=== PATIENT | male | born 1995 | race Caucasian/White ===

== ENCOUNTER 2022-07-25 23:10 | Emergency (ER) | payer OTHER ==
[~2022-07-25] VITALS: Ht 170.2 cm; Wt 77.1 kg
[2022-07-25 23:29] VITALS: BP 183/114
--- NOTE | 2022-07-26 01:30 | NUR ---
ER physician speaking with patient.
--- NOTE | 2022-07-26 01:39 | NUR ---
Patient resting in bed, A/Ox4, chest rise and fall symmetrical, no s/s of distress, on monitor.
[2022-07-26] MEDS ORDERED: SULF-59 PO (02:48)
--- NOTE | 2022-07-26 03:00 | NUR ---
Wound dressing changed per ER physician's verbal orders. Patient tolerated procedure well. Addendum: 07/26/22 at 0301 by [id number] Wound dressing changed per ER physician's verbal orders. Patient tolerated procedure well, no c/o pain or s/s of distress.
[2022-07-26 03:01] VITALS: BP 128/75
== END 2022-07-26 03:02 | disposition home or self-care (01) ==
LOC: MED 23:10
DX: L97.129 Non-pressure chronic ulcer of left thigh with unspecified severity (principal); L03.116 Cellulitis of left lower limb; Z79.899 Other long term (current) drug therapy
CPT/HCPCS: 99283

== ENCOUNTER 2023-01-11 03:10 | Emergency (ER) | payer OTHER ==
[~2023-01-11] VITALS: Ht 162.6 cm; Wt 77.1 kg
[~2023-01-11 03:10] MED LIST: SULF-59 PO
[2023-01-11 03:18] VITALS: BP 170/130; PULSE 129; RESP 16; TEMP 97.4; O2SAT 100
[2023-01-11] MEDS ORDERED: ACETAMINOPHEN EXTRA STRENGTH 500 MG TAB PO ONE (03:50)
[2023-01-11] MEDS ORDERED: IBUPROFEN 600 MG TAB PO ONE (03:50)
[2023-01-11 04:57] LABS: APPEARANCE,URINE CLEAR (CLEAR); BILIRUBIN,URINE NEGATIVE (NEGATIVE); BLOOD, URINE 1+ (NEGATIVE); COLOR,URINE YELLOW (YELLOW); LEUKOCYTE ESTERASE ,URINE NEGATIVE (NEGATIVE); NITRITE, URINE NEGATIVE (NEGATIVE); PROTEIN,URINE TRACE (NEGATIVE); UGLUCOSE NEGATIVE (NEGATIVE); UROBILINOGEN,URINE 0.2 EU/dL (0.2 - 1)
[2023-01-11 05:02] LABS: BACTERIA,URINE >30 (MANY) /HPF (None Seen); MUCUS,URINE 1+ /LPF (None Seen); RBC,URINE 11-20 (MOD) /HPF (0-5); SQUAMOUS EPITHELIAL CELL,UR 0-3 (FEW) /LPF (0-3 (FEW)); WBC,URINE 0-5 /HPF (0-5)
[2023-01-11 05:45] LABS: BASOPHILS % (AUTO) 0.5 % (0.0-2.0); EOSINOPHILS # (AUTO) 0.1 K/uL (0-0.4); EOSINOPHILS % (AUTO) 1.8 % (0.0-4.0); HEMATOCRIT 37.7 % (36-52); HEMOGLOBIN 13.2 g/dL (12.0-18.0); LYMPHOCYTES # (AUTO) 1.7 K/uL (2.0-11.5); LYMPHOCYTES % (AUTO) 22.1 % (20.5-51.1); MEAN CORPUSCULAR HEMOGLOBIN 31 pg (27-31); MEAN CORPUSCULAR HGB CONC 35 g/dL (33-37); MEAN CORPUSCULAR VOLUME 88.4 fL (80-94); MONOCYTES # (AUTO) 0.6 K/uL (0.8-1.0); MONOCYTES % (AUTO) 7.9 % (1.7-9.3); NEUTROPHILS # (AUTO) 5.1 K/uL (1.8-7.7); NEUTROPHILS % (AUTO) 67.7 % (42.2-75.2); PLATELET COUNT (AUTO) 252 K/uL (140-450); RED BLOOD CELL COUNT(AUTO) 4.27 MIL/uL (4.20-6.10); RED CELL DISTRIBUTION WIDTH 13.2 % (11.6-13.7); WHITE BLOOD COUNT (AUTO) 7.6 K/uL (4.8-10.8)
[2023-01-11 05:58] LABS: INR 1.02 (0.8-1.2); PARTIAL THROMBOPLASTIN TIME 26.3 secs (22-35.6); PROTHROMBIN TIME 10.7 secs (10.8-13.4)
[2023-01-11 06:03] LABS: ALBUMIN 3.9 g/dL (3.4-5.0); ANION GAP 13.7 (8-16); CALCIUM 8.2 mg/dL (8.5-10.1); CARBON DIOXIDE 27.5 mmol/L (21-32); CREATININE 1.1 mg/dL (0.6-1.3); POTASSIUM 3.2 mmol/L (3.5-5.1); TOTAL BILIRUBIN 0.9 mg/dL (0.0-1.0); TOTAL PROTEIN, SERUM 6.8 g/dL (6.4-8.2)
[2023-01-11 09:27] VITALS: BP 135/78; PULSE 76; RESP 14; TEMP 97.1; O2SAT 100
== END 2023-01-11 09:29 | disposition home or self-care (01) ==
LOC: MED 03:10
DX: S39.840A Fracture of corpus cavernosum penis, initial encounter (principal); Z79.2 Long term (current) use of antibiotics; X58.XXXA Exposure to other specified factors, initial encounter; Y92.89 Other specified places as the place of occurrence of the external cause; Y93.89 Activity, other specified; Y99.8 Other external cause status
CPT/HCPCS: 36415; 76770; 80053; 81001; 85025; 85610; 85730; 99284; Q0092